=== PATIENT | female | born 1975 | race Caucasian/White ===

== ENCOUNTER 2018-08-15 05:18 | Day surgery (SDC) | payer BC ==
[2018-08-13 11:24] LABS: BASOPHILS % (AUTO) 0.4 % (0-1); EOSINOPHILS # (AUTO) 0.1 X10'3 (0-0.9); EOSINOPHILS % (AUTO) 1.6 % (0-6); LYMPHOCYTES # (AUTO) 3.6 X10'3 (1.1-4.8); MEAN CORPUSCULAR HEMOGLOBIN 28.8 PG (27.0-31.0); MEAN CORPUSCULAR HGB CONC 33.3 % (33.0-36.5); MEAN CORPUSCULAR VOLUME 86.5 FL (78-98); MEAN PLATELET VOLUME 7.6 FL (7.4-10.4); MONOCYTES # (AUTO) 0.5 X10'3 (0-0.9); MONOCYTES % (AUTO) 6.3 % (2-12); NEUTROPHILS # (AUTO) 4.2 X10'3 (1.8-7.7); NEUTROPHILS % (AUTO) 49.7 % (42-75); PRE OP HEMATOCRIT 39.5 % (35.0-45.0); PRE OP HEMOGLOBIN 13.1 g/dL (12.0-16.0); PRE OP PLATELET COUNT 378 X10'3 (140-440); RED BLOOD COUNT 4.56 X10'6 (4.20-5.60); RED CELL DISTRIBUTION WIDTH 13.9 % (11.5-14.5)
[2018-08-13 11:36] LABS: CLARITY,URINE CLEAR (Clear); COLOR,URINE STRAW (Yellow); GLUCOSE, URINE NEGATIVE (Neg); KETONES,URINE NEGATIVE (Neg); LEUKOCYTE ESTERASE ,URINE NEGATIVE (Neg); NITRITES, URINE NEGATIVE (Neg); OCCULT BLOOD,URINE NEGATIVE (Neg); PROTEIN,URINE NEGATIVE (Neg); UROBILINOGEN,URINE 0.2 E.U/dL (0.2-1.0)
[2018-08-13 11:38] LABS: UA COLLECTION TYPE CLN CATCH MIDSTREAM
[2018-08-13 11:43] LABS: BLOOD UREA NITROGEN 10 MG/DL (7-18); BUN/CREATININE RATIO 9.5 (6.6-38.0); CALCIUM 8.9 MG/DL (8.5-10.1); CHLORIDE 102 MMOL/L (99-107); CREATININE 1.05 MG/DL (0.40-0.90); PRE OP ANION GAP 9 (8-16); PRE OP BILIRUB, TOTAL 0.3 MG/DL (0.0-1.0); PRE OP GLUCOSE 89 MG/DL (70-104); PRE OP POTASSIUM 3.7 MMOL/L (3.4-5.1); PRE OP SODIUM 138 MMOL/L (135-145); TOTAL CARBON DIOXIDE 27.3 MMOL/L (24-32); TOTAL PROTEIN 7.3 G/DL (6.4-8.2); eGFR 57 ML/MIN
[2018-08-13 11:44] LABS: ALBUMIN 3.4 G/DL (3.4-5.0); ALBUMIN/GLOBULIN RATIO 0.9 (1.1-1.5); ALKALINE PHOSPHATASE 77 IU/L (46-116); PRE OP ALT 30 U/L (30-65); PRE OP AST 19 U/L (10-37)
[~2018-08-15] VITALS: Ht 162.6 cm; Wt 98.2 kg
[2018-08-15] VITALS (11 sets, daily range): BP systolic 117–217; BP diastolic 62–132
[~2018-08-15 05:18] MED LIST: ASCO10007 PO; BUPR300T86 PO; ESCI10TA54 PO; ESTR2TAB6 PO; LACT1CAP65 PO; MULT-38 PO; PANT40TA4 PO; ringers solution, lacted 1,000 ML IV SCH
[2018-08-15] MEDS ORDERED: famotidine 20mg tablet PO ONE (05:30)
[2018-08-15] MEDS ORDERED: ceFOXitin 2 GM ADDvantage bag 100 ML IV ONE (05:30)
[2018-08-15] MEDS ORDERED: LIDOcaine 1% (10mg/ml) 2ml vial ONE (05:36)
[2018-08-15] MEDS ORDERED: scopolamine 1.5mg patch.TD72 TD ONE (06:00)
[2018-08-15] MEDS ORDERED: BUPIVAcaine/PF 2.5mg/ml (0.25%) 10ml vial ONE (06:46)
[2018-08-15] MEDS ORDERED: ceFAZolin 1000mg inj ONE (06:46)
[2018-08-15] MEDS ORDERED: midazolam 2 mg/2 ml injection ONE ×2 (07:13→07:30)
[2018-08-15] MEDS ORDERED: sevoflurane 250ml liquid IH ONE (07:26)
[2018-08-15] MEDS ORDERED: propofol inj 20 ML IV ONE (07:30)
[2018-08-15] MEDS ORDERED: fentaNYL/PF 50MCG/1 ML 2ML syringe ONE (07:30)
[2018-08-15] MEDS ORDERED: rocuronium 10mg/ml inj IV ONE (07:30)
[2018-08-15] MEDS ORDERED: ondansetron/PF 4mg/2ml inj ONE (07:33)
[2018-08-15] MEDS ORDERED: dexamethasone sod phosphate 4mg/ml inj. ONE (07:33)
[2018-08-15] MEDS ORDERED: meperidine/PF 25mg/ml syringe IV PRN ×3 (08:00)
[2018-08-15] MEDS ORDERED: morphine 4 MG/ML inj SYRINge IV PRN (08:00)
[2018-08-15] MEDS ORDERED: proCHLORperazine 10 MG/2 ml inj IV PRN (08:00)
[2018-08-15] MEDS ORDERED: ringers solution, lacted 1,000 ML IV SCH (08:00)
[2018-08-15] MEDS ORDERED: ondansetron/PF 4mg/2ml inj IV PRN (08:00)
[2018-08-15] MEDS ORDERED: glycopyrrolate 0.2mg/ml inj ONE (08:15)
[2018-08-15] MEDS ORDERED: neostigmine methylsulfate 1 MG/ML 10ml vial ONE (08:15)
[2018-08-15] MEDS ORDERED: ketorolac trometh. 30mg/ml inj. IV ONE (08:35)
[2018-08-15] MEDS ORDERED: acetaminophen 1,000mg/100ml IV 100 ML IV ONE (08:35)
[2018-08-15] MEDS: morphine 4 MG/ML inj SYRINge IV PRN ×2 (08:51→09:25)
[2018-08-15] MEDS ORDERED: HYDROcodone/acetaminophen 10/325mg tab PO ONE (09:25)
== END 2018-08-15 10:00 | disposition home or self-care (01) ==
LOC: PAS 05:18
PROVIDERS: ATTEND Surgery
DX: K80.10 Calculus of gallbladder with chronic cholecystitis without obstruction (principal); K82.8 Other specified diseases of gallbladder; K21.9 Gastro-esophageal reflux disease without esophagitis; F41.8 Other specified anxiety disorders; F32.9 Major depressive disorder, single episode, unspecified; E66.9 Obesity, unspecified; G47.33 Obstructive sleep apnea (adult) (pediatric); Z86.69 Personal history of other diseases of the nervous system and sense organs; Z90.722 Acquired absence of ovaries, bilateral; Z91.040 Latex allergy status; Z68.37 Body mass index [BMI] 37.0-37.9, adult; Z87.891 Personal history of nicotine dependence; Z87.09 Personal history of other diseases of the respiratory system; Z90.710 Acquired absence of both cervix and uterus; Z88.6 Allergy status to analgesic agent; Z88.5 Allergy status to narcotic agent; Z88.2 Allergy status to sulfonamides; Z98.890 Other specified postprocedural states; Z79.899 Other long term (current) drug therapy; Z88.8 Allergy status to other drugs, medicaments and biological substances; Z82.49 Family history of ischemic heart disease and other diseases of the circulatory system
CPT/HCPCS: 36415; 47562; 80053; 81003; 85025; J0131; J0690; J0694; J1100; J1885; J2175; J2250; J2270; J2405; J2704; J2710; J3010; J3490; J7120; A7000